=== PATIENT | female | born 1960 | race Caucasian/White ===

== ENCOUNTER 2022-10-21 15:15 | Inpatient (IN) ==
[2022-10-21 15:54] LABS: Hematocrit 36 % (35-47); Hemoglobin 11.6 g/dL (12.0-16.0); Mean Corpuscular HGB Conc 33 g/dL (31-36); Mean Corpuscular Hemoglobin 27 pg (27-31); Mean Corpuscular Volume 84 fL (80-97); Mean Platelet Volume 6.5 fL (7.4-10.4); Platelet Count 572 10^3/uL (150-450); Red Blood Count 4.28 10^6 /uL (3.70-4.87); Red Cell Distribution Width 17 % (10-15); White Blood Count 16.3 10^3/uL (3.5-10.8)
[2022-10-21 16:19] LABS: Activated Partial Thrombo Time 28.9 seconds (26.0-38.0); INR 1.15 (0.88-1.18)
[2022-10-21 16:39] LABS: ABS Basophils 0.2 10^3/ul (0-0.2); ABS Eosinophils 0.1 10^3/ul (0-0.6); ABS Lymphocytes 2.8 10^3/ul (1.0-4.8); ABS Monocytes 2.2 10^3/ul (0-0.8); ABS Neutrophils 10.9 10^3/ul (1.5-7.7); Eosinophil % 0.9 %; Lymphocyte % 17.4 %
[2022-10-21 17:05] LABS: Albumin 3.7 g/dL (3.2-5.2); Albumin/Globulin Ratio 1.2 (1-3); C Reactive Protein 119.9 mg/L (<8.01); Calcium 8.9 mg/dL (8.6-10.3); Creatinine, Serum 1.15 mg/dL (0.51-0.95); Globulin 3.2 g/dL (2-4); Potassium 4.5 mmol/L (3.5-5.0); Total Bilirubin 0.5 mg/dL (0.2-1.0); Total Protein 6.9 g/dL (6.4-8.9); eGFR CKD-EPI 54.5 (>60)
[2022-10-21 17:43] LABS: High Sensitivity Troponin 1 Hr 135 pg/mL (<15)
[2022-10-21] MEDS ORDERED: cefTRIAXone 1 gm/50 mL D5W 1 GM/50 ML BAG IV ONE (20:17)
[2022-10-21 20:26] LABS: Urine Appearance Cloudy; Urine Bilirubin Negative (Negative); Urine Blood Negative (Negative); Urine Color Yellow; Urine Glucose Negative (Negative); Urine Ketones Negative (Negative); Urine Nitrite Negative (Negative); Urine Protein Negative (Negative); Urine Specific Gravity 1.009 (1.002-1.030); Urine Urobilinogen Negative (Negative)
[2022-10-21] MEDS ORDERED: [UNRECOGNIZED DRUG - REMARK] FOLLOW UP PRN (21:13)
[2022-10-21] MEDS ORDERED: Nicotine PATCH 21 MG/24 HR PATCH TRANSDERM ONE (21:57)
[2022-10-21] MEDS ORDERED: Vancomycin 2,000 MG in NS 0.9% 500 ml BAG 500 ML IVPB ONE (22:00)
[2022-10-21] MEDS ORDERED: Vancomycin 1,000 MG VIAL IVPB SCH (22:00)
[2022-10-21] MEDS: Enoxaparin 40 MG/0.4 ML SYR SUBCUT SCH (22:23)
[2022-10-21] MEDS: Albuterol HFA INHALER 8 gm MDI INH SCH (22:51)
[2022-10-21] MEDS ORDERED: Vancomycin per Pharmacy 1 EA NOTE FOLLOW UP SCH (23:00)
[2022-10-21 23:35] LABS: Erythrocyte Sed Rate 55 mm/Hr (0-29)
[2022-10-21] MEDS: Nystatin TOP POWDER 15 GM BTL TOPICAL SCH (23:37)
[2022-10-21] MEDS ORDERED: Nystatin TOP POWDER 15 GM BTL TOPICAL SCH (23:45)
[2022-10-22] MEDS: Albuterol HFA INHALER 8 gm MDI INH SCH ×6 (02:23→21:56)
[2022-10-22 06:02] LABS: Hematocrit 31 % (35-47); Hemoglobin 9.9 g/dL (12.0-16.0); Mean Corpuscular HGB Conc 32 g/dL (31-36); Mean Corpuscular Hemoglobin 27 pg (27-31); Mean Corpuscular Volume 84 fL (80-97); Mean Platelet Volume 6.8 fL (7.4-10.4); Platelet Count 470 10^3/uL (150-450); Red Blood Count 3.72 10^6 /uL (3.70-4.87); Red Cell Distribution Width 18 % (10-15)
[2022-10-22 06:48] LABS: Blood Urea Nitrogen 18 mg/dL (6-24); CO2 Carbon Dioxide 26 mmol/L (22-32); Calcium 7.8 mg/dL (8.6-10.3); Chloride 96 mmol/L (101-111); Creatinine, Serum 1.39 mg/dL (0.51-0.95); Glucose 92 mg/dL (70-100); Sodium 126 mmol/L (135-145); eGFR CKD-EPI 43.4 (>60)
[2022-10-22 07:16] LABS: RBC Morphology Normal (Normal)
[2022-10-22 07:17] LABS: ABS Basophils 0.1 10^3/ul (0-0.2); ABS Eosinophils 0.3 10^3/ul (0-0.6); ABS Monocytes 1.2 10^3/ul (0-0.8); ABS Neutrophils 7.3 10^3/ul (1.5-7.7); Eosinophil % 2.4 %; Lymphocyte % 25.2 %
[2022-10-22 07:26] LABS: Anion Gap 4 mmol/L (2-11)
[2022-10-22] MEDS: Nicotine PATCH 21 MG/24 HR PATCH TRANSDERM SCH (08:48)
[2022-10-22] MEDS: Nystatin TOP POWDER 15 GM BTL TOPICAL SCH ×3 (08:48→22:03)
[2022-10-22 08:56] LABS: Magnesium 1.9 mg/dL (1.9-2.7); Potassium Redraw 4.6 mmol/L (3.5-5.0)
[2022-10-22] MEDS: Collagenase 250 units/gm OINT 1 tube TOPICAL SCH (09:19)
[2022-10-22] MEDS: BUDESONIDE GLYCOPYR FORMOTEROL INH SCH ×2 (10:22→20:22)
[2022-10-22] MEDS: TERIFLUNOMIDE 7 MG PO SCH (10:22)
[2022-10-22] MEDS: ACTUA INH SCH ×2 (10:22→20:22)
[2022-10-22] MEDS ORDERED: Lidocaine 1% w EPI 1:200,000 SDV 30 ML VIAL INJ ONE (12:10)
[2022-10-22] MEDS ORDERED: Lidocaine 1.5% EPI 1:200,000 30 ML SDV ONE (12:23)
[2022-10-22] MEDS: Vancomycin 2,000 MG in NS 0.9% 500 ml BAG 500 ML IVPB SCH (14:41)
[2022-10-22] MEDS ORDERED: Lactated Ringers 1000 ml BAG 1,000 ML IV ONE (18:09)
[2022-10-22] MEDS: Enoxaparin 40 MG/0.4 ML SYR SUBCUT SCH (21:52)
[2022-10-23] MEDS: Albuterol HFA INHALER 8 gm MDI INH SCH ×6 (02:32→22:54)
[2022-10-23 07:05] LABS: Hematocrit 32 % (35-47); Mean Corpuscular HGB Conc 31 g/dL (31-36); Mean Corpuscular Hemoglobin 27 pg (27-31); Mean Corpuscular Volume 85 fL (80-97); Mean Platelet Volume 6.4 fL (7.4-10.4); Platelet Count 452 10^3/uL (150-450); Red Blood Count 3.76 10^6 /uL (3.70-4.87); Red Cell Distribution Width 17 % (10-15); White Blood Count 10.3 10^3/uL (3.5-10.8)
[2022-10-23] MEDS: ACTUA INH SCH ×2 (07:17→19:25)
[2022-10-23] MEDS: BUDESONIDE GLYCOPYR FORMOTEROL INH SCH ×2 (07:17→19:25)
[2022-10-23 07:50] LABS: RBC Morphology Normal (Normal); Toxic Granulation 1+
[2022-10-23 07:51] LABS: ABS Basophils 0.2 10^3/ul (0-0.2); ABS Eosinophils 0.2 10^3/ul (0-0.6); ABS Lymphocytes 3.1 10^3/ul (1.0-4.8); ABS Monocytes 1.2 10^3/ul (0-0.8); ABS Neutrophils 5.7 10^3/ul (1.5-7.7); Eosinophil % 2.3 %; Lymphocyte % 29.6 %
[2022-10-23 07:58] LABS: Calcium 8.6 mg/dL (8.6-10.3); Creatinine, Serum 0.97 mg/dL (0.51-0.95); eGFR CKD-EPI 66.9 (>60)
[2022-10-23] MEDS: Nicotine PATCH 21 MG/24 HR PATCH TRANSDERM SCH (09:54)
[2022-10-23] MEDS: TERIFLUNOMIDE 7 MG PO SCH (09:55)
[2022-10-23] MEDS: Collagenase 250 units/gm OINT 1 tube TOPICAL SCH (12:41)
[2022-10-23] MEDS: Nystatin TOP POWDER 15 GM BTL TOPICAL SCH ×3 (12:42→21:54)
[2022-10-23] MEDS ORDERED: HYDROmorphone 1 MG/1 ML SYRINGE IV SLOW PU ONE (12:56)
[2022-10-23] MEDS: Vancomycin 2,000 MG in NS 0.9% 500 ml BAG 500 ML IVPB SCH (16:04)
[2022-10-23] MEDS: Enoxaparin 40 MG/0.4 ML SYR SUBCUT SCH (21:56)
[2022-10-24] MEDS: Albuterol HFA INHALER 8 gm MDI INH SCH ×6 (03:32→22:44)
[2022-10-24 07:31] LABS: ABS Basophils 0.2 10^3/ul (0-0.2); ABS Eosinophils 0.1 10^3/ul (0-0.6); ABS Lymphocytes 1.9 10^3/ul (1.0-4.8); Eosinophil % 1.4 %; Hematocrit 29 % (35-47); Hemoglobin 9.3 g/dL (12.0-16.0); Lymphocyte % 20.2 %; Mean Corpuscular HGB Conc 32 g/dL (31-36); Mean Corpuscular Hemoglobin 27 pg (27-31); Mean Corpuscular Volume 85 fL (80-97); Mean Platelet Volume 6.6 fL (7.4-10.4); Platelet Count 407 10^3/uL (150-450); Red Blood Count 3.45 10^6 /uL (3.70-4.87); Red Cell Distribution Width 18 % (10-15); White Blood Count 9.2 10^3/uL (3.5-10.8)
[2022-10-24 07:46] LABS: Calcium 8.2 mg/dL (8.6-10.3); Creatinine, Serum 0.88 mg/dL (0.51-0.95); eGFR CKD-EPI 75.2 (>60)
[2022-10-24 08:10] LABS: Potassium 5.2 mmol/L (3.5-5.0)
[2022-10-24] MEDS: BUDESONIDE GLYCOPYR FORMOTEROL INH SCH ×2 (08:31→20:07)
[2022-10-24] MEDS: ACTUA INH SCH ×2 (08:31→20:07)
[2022-10-24] MEDS: Nicotine PATCH 21 MG/24 HR PATCH TRANSDERM SCH (09:22)
[2022-10-24] MEDS: TERIFLUNOMIDE 7 MG PO SCH (09:23)
[2022-10-24] MEDS ORDERED: Influenza vaccine *QUAD* *2022-23* 0.5 ML SYRINGE IM ONE (10:00)
[2022-10-24] MEDS ORDERED: Pneumococcal Vac 23-Polyvalent IM ONE (10:00)
[2022-10-24] MEDS: Collagenase 250 units/gm OINT 1 tube TOPICAL SCH (11:15)
[2022-10-24] MEDS: Nystatin TOP POWDER 15 GM BTL TOPICAL SCH ×3 (11:15→21:07)
[2022-10-24] MEDS: cefTRIAXone 1 gm/50 mL D5W 1 GM/50 ML BAG IV SCH (13:32)
[2022-10-24 14:13] LABS: Urine Appearance Cloudy; Urine Bilirubin Negative (Negative); Urine Blood Negative (Negative); Urine Color Yellow; Urine Glucose Negative (Negative); Urine Ketones Negative (Negative); Urine Nitrite Negative (Negative); Urine Protein Negative (Negative); Urine Specific Gravity 1.016 (1.002-1.030); Urine Urobilinogen Negative (Negative)
[2022-10-24] MEDS ORDERED: Vancomycin Trough Check NOTE FOLLOW UP ONE (14:30)
[2022-10-24] MEDS ORDERED: HYDROmorphone 1 MG/1 ML SYRINGE IV SLOW PU ONE (14:51)
[2022-10-24] MEDS: Azithromycin 500 mg/250 ml NS 500 MG/250 ML BAG IVPB SCH (14:57)
[2022-10-24] MEDS: Vancomycin 2,000 MG in NS 0.9% 500 ml BAG 500 ML IVPB SCH (16:15)
[2022-10-24] MEDS: Enoxaparin 40 MG/0.4 ML SYR SUBCUT SCH (21:07)
[2022-10-25 06:31] LABS: ABS Basophils 0.1 10^3/ul (0-0.2); ABS Eosinophils 0.3 10^3/ul (0-0.6); ABS Lymphocytes 1.9 10^3/ul (1.0-4.8); ABS Monocytes 1.4 10^3/ul (0-0.8); ABS Neutrophils 5.3 10^3/ul (1.5-7.7); Hematocrit 31 % (35-47); Hemoglobin 9.8 g/dL (12.0-16.0); Lymphocyte % 21.5 %; Mean Corpuscular HGB Conc 31 g/dL (31-36); Mean Corpuscular Hemoglobin 27 pg (27-31); Mean Corpuscular Volume 86 fL (80-97); Mean Platelet Volume 6.5 fL (7.4-10.4); Platelet Count 373 10^3/uL (150-450); Red Blood Count 3.64 10^6 /uL (3.70-4.87); Red Cell Distribution Width 17 % (10-15); White Blood Count 9.1 10^3/uL (3.5-10.8)
[2022-10-25 06:47] LABS: Blood Urea Nitrogen 12 mg/dL (6-24); CO2 Carbon Dioxide 29 mmol/L (22-32); Calcium 8.4 mg/dL (8.6-10.3); Chloride 98 mmol/L (101-111); Creatinine, Serum 0.99 mg/dL (0.51-0.95); Glucose 88 mg/dL (70-100); Sodium 132 mmol/L (135-145); eGFR CKD-EPI 65.3 (>60)
[2022-10-25 06:59] LABS: Anion Gap 5 mmol/L (2-11); Potassium 5.2 mmol/L (3.5-5.0)
[2022-10-25] MEDS: BUDESONIDE GLYCOPYR FORMOTEROL INH SCH ×2 (08:27→19:25)
[2022-10-25] MEDS: ACTUA INH SCH ×2 (08:27→19:25)
[2022-10-25] MEDS: Albuterol HFA INHALER 8 gm MDI INH SCH ×4 (08:28→19:25)
[2022-10-25] MEDS: Nystatin TOP POWDER 15 GM BTL TOPICAL SCH ×3 (09:18→21:45)
[2022-10-25] MEDS: Nicotine PATCH 21 MG/24 HR PATCH TRANSDERM SCH (09:18)
[2022-10-25] MEDS: TERIFLUNOMIDE 7 MG PO SCH (09:19)
[2022-10-25] MEDS: Magnesium Hydroxide LIQ 30 ML UDC PO SCH ×2 (12:33→21:45)
[2022-10-25] MEDS: Collagenase 250 units/gm OINT 1 tube TOPICAL SCH (12:33)
[2022-10-25] MEDS: cefTRIAXone 1 gm/50 mL D5W 1 GM/50 ML BAG IV SCH (13:08)
[2022-10-25] MEDS: Azithromycin 500 mg/250 ml NS 500 MG/250 ML BAG IVPB SCH (15:02)
[2022-10-25] MEDS: Vancomycin 2,000 MG in NS 0.9% 500 ml BAG 500 ML IVPB SCH (16:11)
[2022-10-25 17:48] LABS: Rheumatoid Factor < 10 IU/mL (<15)
[2022-10-25] MEDS: Enoxaparin 40 MG/0.4 ML SYR SUBCUT SCH (21:43)
[2022-10-26 07:14] LABS: ABS Basophils 0.1 10^3/ul (0-0.2); ABS Lymphocytes 0.8 10^3/ul (1.0-4.8); ABS Monocytes 0.9 10^3/ul (0-0.8); ABS Neutrophils 4.7 10^3/ul (1.5-7.7); Eosinophil % 0.1 %; Hematocrit 29 % (35-47); Hemoglobin 9.2 g/dL (12.0-16.0); Lymphocyte % 11.6 %; Mean Corpuscular HGB Conc 32 g/dL (31-36); Mean Corpuscular Hemoglobin 28 pg (27-31); Mean Corpuscular Volume 85 fL (80-97); Mean Platelet Volume 6.9 fL (7.4-10.4); Platelet Count 381 10^3/uL (150-450); Red Blood Count 3.35 10^6 /uL (3.70-4.87); Red Cell Distribution Width 18 % (10-15); White Blood Count 6.5 10^3/uL (3.5-10.8)
[2022-10-26 07:35] LABS: Calcium 8.4 mg/dL (8.6-10.3); Creatinine, Serum 0.83 mg/dL (0.51-0.95); eGFR CKD-EPI 80.7 (>60)
[2022-10-26 07:42] LABS: Potassium 5.8 mmol/L (3.5-5.0)
[2022-10-26] MEDS: Albuterol HFA INHALER 8 gm MDI INH SCH ×4 (08:12→19:32)
[2022-10-26] MEDS: ACTUA INH SCH ×2 (09:02→19:33)
[2022-10-26] MEDS: BUDESONIDE GLYCOPYR FORMOTEROL INH SCH ×2 (09:02→19:33)
[2022-10-26] MEDS: TERIFLUNOMIDE 7 MG PO SCH (09:15)
[2022-10-26] MEDS: Magnesium Hydroxide LIQ 30 ML UDC PO SCH ×2 (09:19→21:34)
[2022-10-26] MEDS: Nicotine PATCH 21 MG/24 HR PATCH TRANSDERM SCH (09:19)
[2022-10-26] MEDS: Collagenase 250 units/gm OINT 1 tube TOPICAL SCH (11:25)
[2022-10-26] MEDS: Nystatin TOP POWDER 15 GM BTL TOPICAL SCH ×3 (11:25→21:34)
[2022-10-26] MEDS: cefTRIAXone 1 gm/50 mL D5W 1 GM/50 ML BAG IV SCH (13:45)
[2022-10-26] MEDS: Vancomycin 2,000 MG in NS 0.9% 500 ml BAG 500 ML IVPB SCH (15:20)
[2022-10-26] MEDS: Azithromycin 500 mg/250 ml NS 500 MG/250 ML BAG IVPB SCH (15:53)
[2022-10-26] MEDS: Nicotine GUM 4MG FRUIT FLAVOR PO PRN ×2 (17:46→21:37)
[2022-10-26 21:34] LABS: JO-1 Antibody <0.2 U; RNP Antibody, IgG <0.2 U; SS-A/Ro Antibody <0.2 U; SS-B/La Antibody <0.2 U; Scl 70 Ab, IgG, S <0.2 U; Sm (Smith) IgG Antibody <0.2 U
[2022-10-26] MEDS: Enoxaparin 40 MG/0.4 ML SYR SUBCUT SCH (21:36)
[2022-10-26 23:25] LABS: Cytoplasmic Pattern: Positive
[2022-10-27] MEDS: Albuterol HFA INHALER 8 gm MDI INH SCH ×4 (07:08→19:26)
[2022-10-27] MEDS: BUDESONIDE GLYCOPYR FORMOTEROL INH SCH (07:09)
[2022-10-27] MEDS: ACTUA INH SCH (07:09)
[2022-10-27] MEDS: Magnesium Hydroxide LIQ 30 ML UDC PO SCH ×2 (08:18→20:23)
[2022-10-27] MEDS: Nicotine PATCH 21 MG/24 HR PATCH TRANSDERM SCH (08:20)
[2022-10-27] MEDS: Nystatin TOP POWDER 15 GM BTL TOPICAL SCH ×3 (08:22→20:21)
[2022-10-27] MEDS: TERIFLUNOMIDE 7 MG PO SCH (08:22)
[2022-10-27 08:30] LABS: Calcium 8.7 mg/dL (8.6-10.3)
[2022-10-27 08:36] LABS: Potassium 5.4 mmol/L (3.5-5.0)
[2022-10-27 09:38] LABS: Creatinine, Serum 0.8 mg/dL (0.51-0.95); eGFR CKD-EPI 84.3 (>60)
[2022-10-27 11:00] LABS: Complement C3 130 mg/dL (75 - 175)
[2022-10-27] MEDS: Nicotine GUM 4MG FRUIT FLAVOR PO PRN (12:08)
[2022-10-27] MEDS: cefTRIAXone 1 gm/50 mL D5W 1 GM/50 ML BAG IV SCH (13:16)
[2022-10-27] MEDS: Collagenase 250 units/gm OINT 1 tube TOPICAL SCH ×2 (13:21→20:25)
[2022-10-27] MEDS ORDERED: Polyethylene Glycol 3350 17 GM PACKET PO PRN (13:59)
[2022-10-27] MEDS: Docusate LIQ 100 MG/10 ML UDC PO SCH (14:50)
[2022-10-27] MEDS: Senna TAB 8.6 mg TAB PO SCH (14:51)
[2022-10-27 14:54] LABS: Cryoglobulin Negative %ppt (Negative)
[2022-10-27] MEDS: Vancomycin 2,000 MG in NS 0.9% 500 ml BAG 500 ML IVPB SCH (15:25)
[2022-10-27] MEDS: Albuterol/Ipratropium NEB.SOL (2.5/0.5 MG) 3 ML NEB.SOLN INH SCH (19:23)
[2022-10-27] MEDS: Enoxaparin 40 MG/0.4 ML SYR SUBCUT SCH (21:31)
[2022-10-28] MEDS: Albuterol/Ipratropium NEB.SOL (2.5/0.5 MG) 3 ML NEB.SOLN INH SCH ×2 (06:54→21:02)
[2022-10-28] MEDS: Albuterol HFA INHALER 8 gm MDI INH SCH ×3 (06:55→13:39)
[2022-10-28 07:03] LABS: ABS Basophils 0.1 10^3/ul (0-0.2); ABS Lymphocytes 2.3 10^3/ul (1.0-4.8); ABS Monocytes 1.3 10^3/ul (0-0.8); ABS Neutrophils 7.4 10^3/ul (1.5-7.7); Eosinophil % 0.2 %; Hematocrit 29 % (35-47); Hemoglobin 9.1 g/dL (12.0-16.0); Lymphocyte % 20.7 %; Mean Corpuscular HGB Conc 32 g/dL (31-36); Mean Corpuscular Hemoglobin 27 pg (27-31); Mean Corpuscular Volume 85 fL (80-97); Mean Platelet Volume 6.7 fL (7.4-10.4); Platelet Count 439 10^3/uL (150-450); Red Blood Count 3.39 10^6 /uL (3.70-4.87); Red Cell Distribution Width 17 % (10-15); White Blood Count 11.2 10^3/uL (3.5-10.8)
[2022-10-28 07:52] LABS: Calcium 8.7 mg/dL (8.6-10.3); Creatinine, Serum 0.75 mg/dL (0.51-0.95); eGFR CKD-EPI 91.1 (>60)
[2022-10-28 07:55] LABS: Potassium 5.2 mmol/L (3.5-5.0)
[2022-10-28] MEDS: Docusate LIQ 100 MG/10 ML UDC PO SCH (08:08)
[2022-10-28] MEDS: Magnesium Hydroxide LIQ 30 ML UDC PO SCH ×2 (08:08→21:29)
[2022-10-28] MEDS: Senna TAB 8.6 mg TAB PO SCH (08:08)
[2022-10-28] MEDS: Nicotine PATCH 21 MG/24 HR PATCH TRANSDERM SCH (08:08)
[2022-10-28] MEDS: Nystatin TOP POWDER 15 GM BTL TOPICAL SCH ×3 (08:09→20:35)
[2022-10-28] MEDS: TERIFLUNOMIDE 7 MG PO SCH (08:09)
[2022-10-28] MEDS: Nicotine GUM 4MG FRUIT FLAVOR PO PRN ×2 (13:02→20:35)
[2022-10-28] MEDS: Collagenase 250 units/gm OINT 1 tube TOPICAL SCH (13:22)
[2022-10-28] MEDS: cefTRIAXone 1 gm/50 mL D5W 1 GM/50 ML BAG IV SCH (13:40)
[2022-10-28] MEDS ORDERED: Vancomycin Trough Check NOTE FOLLOW UP ONE (14:30)
[2022-10-28] MEDS: Vancomycin 2,000 MG in NS 0.9% 500 ml BAG 500 ML IVPB SCH (17:08)
[2022-10-28] MEDS ORDERED: Albuterol HFA INHALER 8 gm MDI INH PRN (19:04)
[2022-10-28] MEDS ORDERED: Albuterol/Ipratropium NEB.SOL (2.5/0.5 MG) 3 ML NEB.SOLN ONE (19:21)
[2022-10-28] MEDS: Enoxaparin 40 MG/0.4 ML SYR SUBCUT SCH (21:30)
[2022-10-29] MEDS: Albuterol/Ipratropium NEB.SOL (2.5/0.5 MG) 3 ML NEB.SOLN INH SCH ×4 (06:56→21:04)
[2022-10-29 06:57] LABS: ABS Basophils 0.2 10^3/ul (0-0.2); ABS Lymphocytes 2.5 10^3/ul (1.0-4.8); ABS Monocytes 1.4 10^3/ul (0-0.8); ABS Neutrophils 8.5 10^3/ul (1.5-7.7); Eosinophil % 0.2 %; Hematocrit 32 % (35-47); Lymphocyte % 19.6 %; Mean Corpuscular HGB Conc 32 g/dL (31-36); Mean Corpuscular Hemoglobin 27 pg (27-31); Mean Corpuscular Volume 85 fL (80-97); Mean Platelet Volume 7.1 fL (7.4-10.4); Platelet Count 485 10^3/uL (150-450); Red Blood Count 3.72 10^6 /uL (3.70-4.87); Red Cell Distribution Width 17 % (10-15); White Blood Count 12.5 10^3/uL (3.5-10.8)
[2022-10-29 07:18] LABS: Creatinine, Serum 0.9 mg/dL (0.51-0.95); Magnesium 2.1 mg/dL (1.9-2.7); Potassium 4.8 mmol/L (3.5-5.0); eGFR CKD-EPI 73.2 (>60)
[2022-10-29] MEDS: Magnesium Hydroxide LIQ 30 ML UDC PO SCH ×3 (09:33→19:19)
[2022-10-29] MEDS: Docusate LIQ 100 MG/10 ML UDC PO SCH (09:34)
[2022-10-29] MEDS: Nicotine PATCH 21 MG/24 HR PATCH TRANSDERM SCH (09:34)
[2022-10-29] MEDS: Senna TAB 8.6 mg TAB PO SCH (09:35)
[2022-10-29] MEDS: Nystatin TOP POWDER 15 GM BTL TOPICAL SCH ×3 (09:35→21:49)
[2022-10-29] MEDS: TERIFLUNOMIDE 7 MG PO SCH (09:36)
[2022-10-29] MEDS: Collagenase 250 units/gm OINT 1 tube TOPICAL SCH (09:39)
[2022-10-29] MEDS: Nicotine GUM 4MG FRUIT FLAVOR PO PRN (17:09)
[2022-10-29 21:31] LABS: Tissue Transglutaminase IgA Ab <1.2 U/mL; Tissue Transglutaminase IgG Ab <1.2 U/mL
[2022-10-29] MEDS: Enoxaparin 40 MG/0.4 ML SYR SUBCUT SCH (21:53)
[2022-10-30] MEDS: Albuterol/Ipratropium NEB.SOL (2.5/0.5 MG) 3 ML NEB.SOLN INH SCH ×4 (07:25→19:29)
[2022-10-30] MEDS: Nicotine PATCH 21 MG/24 HR PATCH TRANSDERM SCH (08:07)
[2022-10-30] MEDS: Nicotine GUM 4MG FRUIT FLAVOR PO PRN (08:08)
[2022-10-30] MEDS: Senna TAB 8.6 mg TAB PO SCH (08:08)
[2022-10-30] MEDS: TERIFLUNOMIDE 7 MG PO SCH (08:08)
[2022-10-30] MEDS: Magnesium Hydroxide LIQ 30 ML UDC PO SCH ×2 (08:09→19:39)
[2022-10-30] MEDS: Collagenase 250 units/gm OINT 1 tube TOPICAL SCH (08:09)
[2022-10-30] MEDS: Docusate LIQ 100 MG/10 ML UDC PO SCH ×2 (08:09→08:12)
[2022-10-30] MEDS: Nystatin TOP POWDER 15 GM BTL TOPICAL SCH ×3 (08:09→19:45)
[2022-10-30] MEDS: Enoxaparin 40 MG/0.4 ML SYR SUBCUT SCH ×2 (19:45→20:05)
[2022-10-30 20:07] LABS: Calprotectin 64.5 mcg/g
[2022-10-31] MEDS: Albuterol/Ipratropium NEB.SOL (2.5/0.5 MG) 3 ML NEB.SOLN INH SCH ×4 (07:32→19:31)
[2022-10-31] MEDS: Senna TAB 8.6 mg TAB PO SCH (08:13)
[2022-10-31] MEDS: Collagenase 250 units/gm OINT 1 tube TOPICAL SCH (08:14)
[2022-10-31] MEDS: Nicotine GUM 4MG FRUIT FLAVOR PO PRN (08:14)
[2022-10-31] MEDS: Nicotine PATCH 21 MG/24 HR PATCH TRANSDERM SCH (08:14)
[2022-10-31] MEDS: Nystatin TOP POWDER 15 GM BTL TOPICAL SCH ×3 (08:16→20:27)
[2022-10-31] MEDS: Magnesium Hydroxide LIQ 30 ML UDC PO SCH ×2 (08:21→20:21)
[2022-10-31] MEDS: Docusate LIQ 100 MG/10 ML UDC PO SCH (08:21)
[2022-10-31] MEDS: TERIFLUNOMIDE 7 MG PO SCH (09:44)
[2022-10-31 11:41] LABS: Hematocrit 32 % (35-47); Hemoglobin 9.8 g/dL (12.0-16.0); Mean Corpuscular HGB Conc 31 g/dL (31-36); Mean Corpuscular Hemoglobin 26 pg (27-31); Mean Corpuscular Volume 84 fL (80-97); Mean Platelet Volume 7.4 fL (7.4-10.4); Platelet Count 496 10^3/uL (150-450); Red Blood Count 3.82 10^6 /uL (3.70-4.87); Red Cell Distribution Width 17 % (10-15); White Blood Count 13.1 10^3/uL (3.5-10.8)
[2022-10-31 11:51] LABS: Calcium 8.9 mg/dL (8.6-10.3); Creatinine, Serum 0.85 mg/dL (0.51-0.95); Potassium 4.8 mmol/L (3.5-5.0); eGFR CKD-EPI 78.4 (>60)
[2022-10-31 12:07] LABS: ABS Basophils 0.2 10^3/ul (0-0.2); ABS Eosinophils 0.1 10^3/ul (0-0.6); ABS Lymphocytes 1.8 10^3/ul (1.0-4.8); ABS Monocytes 1.3 10^3/ul (0-0.8); ABS Neutrophils 9.8 10^3/ul (1.5-7.7); Eosinophil % 0.6 %; Lymphocyte % 13.5 %; Nucleated Red Blood Cells % 0.1
[2022-10-31 12:08] LABS: Anisocytosis 1+; Hypochromasia 3+
[2022-10-31] MEDS: Enoxaparin 40 MG/0.4 ML SYR SUBCUT SCH (20:27)
[2022-11-01] MEDS: Albuterol/Ipratropium NEB.SOL (2.5/0.5 MG) 3 ML NEB.SOLN INH SCH ×2 (07:27→11:02)
[2022-11-01] MEDS: Senna TAB 8.6 mg TAB PO SCH (08:10)
[2022-11-01] MEDS: TERIFLUNOMIDE 7 MG PO SCH (08:12)
[2022-11-01] MEDS: Nicotine PATCH 21 MG/24 HR PATCH TRANSDERM SCH ×2 (08:13→08:15)
[2022-11-01] MEDS: Magnesium Hydroxide LIQ 30 ML UDC PO SCH (08:13)
[2022-11-01] MEDS: Docusate LIQ 100 MG/10 ML UDC PO SCH ×2 (08:13→08:14)
[2022-11-01 10:24] VITALS: BP 129/75
[2022-11-01] MEDS: Nicotine GUM 4MG FRUIT FLAVOR PO PRN (10:29)
[2022-11-01] MEDS: Collagenase 250 units/gm OINT 1 tube TOPICAL SCH (11:24)
[2022-11-01] MEDS: Nystatin TOP POWDER 15 GM BTL TOPICAL SCH (11:43)
[2022-11-01] MEDS ORDERED: Vancomycin Trough Check NOTE FOLLOW UP ONE (14:30)
== END 2022-11-01 12:40 | disposition swing bed (61) | DRG 602 ==
LOC: ED 15:15 → EDHOLD 15:15 → SUATTDRO 21:37 → EDHOLD 10-22 16:08 → MEDTELE 10-22 16:08 → MED 10-23 07:45 → SUATTDRO 10-23 09:00
PROVIDERS: ADMIT Hospitalist; ATTEND Hospitalist

== ENCOUNTER 2023-08-26 02:33 | Inpatient (IN) ==
[2023-08-26] MEDS ORDERED: Albuterol 2.5mg/3 ml (0.083%) NEB.SOLN INH ONE (02:49)
[2023-08-26] MEDS ORDERED: NS 0.9% 1000 ml BAG 1,000 ML IV SCH ×2 (05:15→07:20)
[2023-08-26] MEDS ORDERED: Albuterol HFA INHALER 8 gm MDI INH ONE (05:43)
[2023-08-26] MEDS ORDERED: Albuterol HFA INHALER 8 gm MDI INH SCH ×2 (06:00→07:00)
[2023-08-26] MEDS: Albuterol/Ipratropium NEB.SOL (2.5/0.5 MG) 3 ML NEB.SOLN INH PRN ×2 (06:08→14:31)
[2023-08-26 06:32] LABS: C Reactive Protein 90.08 mg/L (<8.01); Calcium 8.2 mg/dL (8.6-10.3); Creatinine, Serum 0.82 mg/dL (0.51-0.95); Potassium 4.5 mmol/L (3.5-5.0); eGFR CKD-EPI 81.3 (>60)
[2023-08-26] MEDS: Enoxaparin 40 MG/0.4 ML SYR SUBCUT SCH (07:56)
[2023-08-26 08:37] LABS: Hematocrit 29.6 % (35-45); Hemoglobin 9.5 g/dL (11.5-14.3); Mean Corpuscular Hemoglobin 26.7 pg (27-33); Mean Corpuscular Hgb Conc 32.2 g/dL (31-36); Mean Corpuscular Volume 82.8 fL (80-97); Mean Platelet Volume 6.8 fL (7.5-11.2); Platelet Count 582 10^3/uL (150-450); Red Blood Count 3.57 10^6/uL (3.63-4.92); Red Cell Distribution Width 20.5 % (12-17); White Blood Count 18.4 10^3/uL (3.8-11.8)
[2023-08-26] MEDS: TERIFLUNOMIDE 7 MG PO SCH (08:42)
[2023-08-26] MEDS: Azithromycin 500 mg/250 ml NS 500 MG/250 ML BAG IVPB SCH (08:48)
[2023-08-26] MEDS ORDERED: methylPREDNISolone SOD SUCC 40 mg/ml 1 ml VIAL IV SCH (09:00)
[2023-08-26] MEDS ORDERED: cefTRIAXone 1 gm/50 mL D5W 1 GM/50 ML BAG IV SCH (09:00)
[2023-08-26 09:42] LABS: ABS Basophils 0.1 10^3/uL (0.0-0.1); ABS Lymphocytes 0.9 10^3/uL (1.0-4.8); ABS Monocytes 0.8 10^3/uL (0.0-0.9); ABS Neutrophils 16.6 10^3/uL (1.5-7.6); ABS Nucleated RBC 0.01 10^3/ul; Lymphocyte % 4.8 %
[2023-08-26] MEDS ORDERED: Albuterol HFA INHALER 8 gm MDI INH PRN (09:58)
[2023-08-26] MEDS ORDERED: Albuterol/Ipratropium NEB.SOL (2.5/0.5 MG) 3 ML NEB.SOLN INH SCH (10:00)
[2023-08-26] MEDS: Albuterol/Ipratropium NEB.SOL (2.5/0.5 MG) 3 ML NEB.SOLN INH SCH ×3 (14:33→23:34)
[2023-08-27] MEDS: Albuterol/Ipratropium NEB.SOL (2.5/0.5 MG) 3 ML NEB.SOLN INH SCH ×2 (03:28→19:16)
[2023-08-27 06:13] LABS: Hematocrit 29.1 % (35-45); Hemoglobin 9.3 g/dL (11.5-14.3); Mean Corpuscular Hemoglobin 26.7 pg (27-33); Mean Corpuscular Hgb Conc 31.9 g/dL (31-36); Mean Corpuscular Volume 83.7 fL (80-97); Mean Platelet Volume 6.9 fL (7.5-11.2); Platelet Count 596 10^3/uL (150-450); Red Blood Count 3.47 10^6/uL (3.63-4.92); Red Cell Distribution Width 20.4 % (12-17); White Blood Count 19.2 10^3/uL (3.8-11.8)
[2023-08-27 06:31] LABS: Calcium 8.4 mg/dL (8.6-10.3); Creatinine, Serum 0.9 mg/dL (0.51-0.95); Potassium 4.7 mmol/L (3.5-5.0); eGFR CKD-EPI 72.7 (>60)
[2023-08-27] MEDS ORDERED: Albuterol/Ipratropium NEB.SOL (2.5/0.5 MG) 3 ML NEB.SOLN INH SCH ×3 (07:00→15:00)
[2023-08-27] MEDS: FLUTICAS/UMECLI/VILANT 200-62.5-25 MDI (NF) INH SCH (08:07)
[2023-08-27 08:35] LABS: Magnesium 2.3 mg/dL (1.9-2.7)
[2023-08-27] MEDS ORDERED: cefTRIAXone 1 GM Q24H (ADVAN) IVPB SCH ×2 (09:00→19:30)
[2023-08-27] MEDS: Enoxaparin 40 MG/0.4 ML SYR SUBCUT SCH (10:44)
[2023-08-27] MEDS: Collagenase 250 units/gm OINT 1 tube TOPICAL SCH (10:45)
[2023-08-27] MEDS: Azithromycin 500 mg/250 ml NS 500 MG/250 ML BAG IVPB SCH (10:49)
[2023-08-27 14:32] LABS: High Sensitivity Troponin 1 Hr 11 pg/mL (<15)
[2023-08-27] MEDS: methylPREDNISolone SOD SUCC 40 mg/ml 1 ml VIAL IV SCH (18:51)
[2023-08-27] MEDS: TERIFLUNOMIDE 7 MG PO SCH (18:52)
[2023-08-27] MEDS: cefTRIAXone 1 gm/50 mL D5W 1 GM/50 ML BAG IV SCH (22:02)
[2023-08-28] MEDS: methylPREDNISolone SOD SUCC 40 mg/ml 1 ml VIAL IV SCH ×2 (00:21→11:41)
[2023-08-28] MEDS ORDERED: Azithromycin 500 mg/250 ml NS 500 MG/250 ML BAG IVPB SCH (09:00)
[2023-08-28] MEDS: Albuterol/Ipratropium NEB.SOL (2.5/0.5 MG) 3 ML NEB.SOLN INH SCH ×2 (09:10→19:32)
[2023-08-28] MEDS: FLUTICAS/UMECLI/VILANT 200-62.5-25 MDI (NF) INH SCH (09:10)
[2023-08-28] MEDS: Azithromycin 500 mg/250 ml NS 500 MG/250 ML BAG IVPB ONE ×2 (09:50→10:01)
[2023-08-28] MEDS: Enoxaparin 40 MG/0.4 ML SYR SUBCUT SCH (09:54)
[2023-08-28] MEDS: Collagenase 250 units/gm OINT 1 tube TOPICAL SCH (10:04)
[2023-08-28 11:14] LABS: ABS Lymphocytes 1.3 10^3/uL (1.0-4.8); ABS Monocytes 0.8 10^3/uL (0.0-0.9); ABS Neutrophils 9.1 10^3/uL (1.5-7.6); ABS Nucleated RBC 0.01 10^3/ul; Hemoglobin 10.2 g/dL (11.5-14.3); Lymphocyte % 11.6 %; Mean Corpuscular Hemoglobin 27.1 pg (27-33); Mean Corpuscular Volume 90.5 fL (80-97); Mean Platelet Volume 6.8 fL (7.5-11.2); Nucleated Red Blood Cells % 0.1 %/100WBC (0.0-0.8); Platelet Count 547 10^3/uL (150-450); Red Blood Count 3.75 10^6/uL (3.63-4.92); Red Cell Distribution Width 21.3 % (12-17); White Blood Count 11.2 10^3/uL (3.8-11.8)
[2023-08-28 11:32] LABS: Calcium 8.6 mg/dL (8.6-10.3); Creatinine, Serum 0.73 mg/dL (0.51-0.95); Magnesium 2.2 mg/dL (1.9-2.7); Potassium 5.6 mmol/L (3.5-5.0); eGFR CKD-EPI 93.5 (>60)
[2023-08-28] MEDS: TERIFLUNOMIDE 7 MG PO SCH ×2 (14:11→16:07)
[2023-08-28] MEDS ORDERED: Furosemide 20 mg/2 ml IV VIAL IV ONE (14:32)
[2023-08-28 15:52] LABS: Calcium 8.6 mg/dL (8.6-10.3); Creatinine, Serum 0.79 mg/dL (0.51-0.95); Potassium 5.4 mmol/L (3.5-5.0); eGFR CKD-EPI 85.1 (>60)
[2023-08-28] MEDS: cefTRIAXone 1 gm/50 mL D5W 1 GM/50 ML BAG IV SCH (20:14)
[2023-08-29] MEDS: methylPREDNISolone SOD SUCC 40 mg/ml 1 ml VIAL IV SCH ×2 (00:32→12:55)
[2023-08-29 06:51] LABS: Hematocrit 33.9 % (35-45); Hemoglobin 10.8 g/dL (11.5-14.3); Mean Corpuscular Volume 84.4 fL (80-97); Mean Platelet Volume 6.9 fL (7.5-11.2); Platelet Count 552 10^3/uL (150-450); Red Blood Count 4.01 10^6/uL (3.63-4.92); Red Cell Distribution Width 20.7 % (12-17); White Blood Count 12.7 10^3/uL (3.8-11.8)
[2023-08-29 07:02] LABS: Calcium 8.9 mg/dL (8.6-10.3); Creatinine, Serum 0.82 mg/dL (0.51-0.95); Potassium 5.6 mmol/L (3.5-5.0); eGFR CKD-EPI 81.3 (>60)
[2023-08-29] MEDS: Albuterol/Ipratropium NEB.SOL (2.5/0.5 MG) 3 ML NEB.SOLN INH SCH (07:18)
[2023-08-29] MEDS: FLUTICAS/UMECLI/VILANT 200-62.5-25 MDI (NF) INH SCH (07:18)
[2023-08-29] MEDS ORDERED: Influenza vaccine *QUAD* *2023-24* 0.5 ML SYRINGE IM ONE (09:00)
[2023-08-29] MEDS ORDERED: Azithromycin 500 mg/250 ml NS 500 MG/250 ML BAG IVPB SCH (09:00)
[2023-08-29] MEDS: TERIFLUNOMIDE 7 MG PO SCH (09:33)
[2023-08-29] MEDS: Enoxaparin 40 MG/0.4 ML SYR SUBCUT SCH (09:35)
[2023-08-29] MEDS: Collagenase 250 units/gm OINT 1 tube TOPICAL SCH (10:58)
[2023-08-29 13:40] VITALS: BP 155/72
[2023-08-29 14:01] LABS: Blood Urea Nitrogen 27 mg/dL (6-24); CO2 Carbon Dioxide 30 mmol/L (22-32); Calcium 8.8 mg/dL (8.6-10.3); Chloride 99 mmol/L (101-111); Creatinine, Serum 0.91 mg/dL (0.51-0.95); Glucose 130 mg/dL (70-100); Sodium 134 mmol/L (135-145); eGFR CKD-EPI 71.8 (>60)
[2023-08-29 14:23] LABS: Anion Gap 5 mmol/L (2-16)
== END 2023-08-29 16:40 | disposition home or self-care (01) | DRG 871 ==
LOC: EDHOLD 02:33 → ED 02:33 → SUATTDRO 05:07 → EDHOLD 05:32 → MED 13:36
PROVIDERS: ADMIT Internal Medicine; ATTEND Student in an Organized Health Care Education/Training Program